=== PATIENT | male | born 1965 | race American Indian/Alaskan Native ===

== ENCOUNTER 2018-07-10 07:36 | Day surgery (SDC) | payer BC ==
[2018-07-09 12:12] VITALS: BMI 22.8
[2018-07-10 08:26] VITALS: O2SAT 100
[2018-07-10] MEDS ORDERED: Lidocaine Hydrochloride 5 ML INJ ONE (09:45)
[2018-07-10] MEDS ORDERED: Propofol 10 mg/ml Inj (20 ML) ONE ×2 (09:45)
[2018-07-10] MEDS ORDERED: Simethicone 40 mg/0.6 ml Liquid (30 ml) ONE (10:31)
[2018-07-10] MEDS ORDERED: ePHEDrine 50 mg/ml Inj ONE (10:39)
[2018-07-10 11:45] VITALS: RESP 16
[2018-07-10 12:09] VITALS: BP 123/69; PULSE 63; TEMP 97.3
== END 2018-07-10 12:00 | disposition home or self-care (01) ==
LOC: C.ENDO 07:36
PROVIDERS: ATTEND Internal Medicine Gastroenterology
DX: Z12.11 Encounter for screening for malignant neoplasm of colon (principal); K64.1 Second degree hemorrhoids; I10 Essential (primary) hypertension; F32.9 Major depressive disorder, single episode, unspecified; Z86.73 Personal history of transient ischemic attack (TIA), and cerebral infarction without residual deficits; Z79.899 Other long term (current) drug therapy; Z79.82 Long term (current) use of aspirin; F17.210 Nicotine dependence, cigarettes, uncomplicated
CPT/HCPCS: G0121; J2704